=== PATIENT | female | born 1990 | race Caucasian/White ===

== ENCOUNTER → 2016-06-06 | Outpatient (CLI) | payer BC ==
[2016-06-07 13:02] LABS: BLACK RACE non-Black (()); DOWN SYNDROME RISK BY MOM'S AG 1/950 (()); GESTIONAL AGE FOR RISK ESTIMAT Scan estimate (()); MATERNAL WEIGHT/LBS 147 lbs (()); RECOMMENDED FOLLOW UP None. (()); TRISOMY 18 ESTIMATED RISK < 1/100 (())
[2016-06-07 14:06] LABS: GENERAL TEST INFO (QUAD SCREE) SEE COMMENTS (()); INHIBIN SEE COMMENTS (()); INTERPRETATION (QUAD SCREEN) SEE COMMENTS (()); OTHER INFORMATION (QUAD SCRN) Initial testing (()); uE3 SEE COMMENTS (())
== END ==
LOC: MOB LAB 10:36
PROVIDERS: ATTEND Family Medicine
DX: Z36 Encounter for antenatal screening of mother (principal); O26.812 Pregnancy related exhaustion and fatigue, second trimester; Z3A.18 18 weeks gestation of pregnancy
CPT/HCPCS: 36415; 81511; 82728; 83540; 83550

== ENCOUNTER → 2016-06-21 | Outpatient (CLI) | payer BC ==
--- NOTE | 2016-06-21 13:21 | DI ---
US OB GTE 14 WEEKS,06/21/2016 10:54 AM: Clinical History: screening for malformations. Previous Exam: April 26, 2016 Findings: Multiple transabdominal grayscale and color Doppler sonographic images are obtained through the pelvi s, and demonstrate a single live intrauterine gestation in breech presentation. Amniotic fluid level is subjectively normal. There is normal motion of the limbs, heart and diaphragms. The cervix is long and closed measuring 3.2 cm in length. Estimated gestational age was determined by a composite of biparietal diameter, head circumference, a bdominal circumference and femur length yielding an estimated gestational age by ultrasound of 19 wee ks 4 days. Femur length measured at the 5th percentile. Estimated weight was 277 g (4th percentile). Impression: 1. Size is equal to dates however, estimated weight is at the 4th percentile femur length follo wing at the 5th percentile.
== END ==
LOC: US 10:50
PROVIDERS: ATTEND Family Medicine
DX: Z36 Encounter for antenatal screening of mother (principal); Z3A.20 20 weeks gestation of pregnancy
CPT/HCPCS: 76805

== ENCOUNTER → 2016-07-07 | Outpatient (CLI) | payer BC ==
--- NOTE | 2016-07-07 09:58 | DI ---
US OB , LIMITED,07/07/2016 8:59 AM: Clinical History: Check for growth Previous Exam: June 21, 2016 Findings: Multiple grayscale and color Doppler sonographic images are obtained through the pelvis, and demonstr ate a normal amniotic fluid index (17.7 cm). Umbilical artery Doppler waveforms were obtained revealing an SD ratio of 4.3. Detected Doppler heart tones measure 155 beats per minute. The cervix is long and closed measuring 4.4 cm in length. Estimated gestational age was determined by a composite of biparietal diameter, head circumference, a bdominal circumference and femur length yielding an estimated gestational age by ultrasound of 22 wee ks 3 days. Estimated weight was 491 g (24th percentile). The cervix is long and closed measuring 4.6 cm in length. Impression: Single live intrauterine gestation with size equal to dates. Normal amniotic fluid index. Elevated SD ratio (4.4)
== END ==
LOC: US 08:50
PROVIDERS: ATTEND Family Medicine
DX: Z36 Encounter for antenatal screening of mother (principal); Z3A.22 22 weeks gestation of pregnancy
CPT/HCPCS: 76815

== ENCOUNTER → 2016-07-20 | Outpatient (CLI) | payer BC ==
--- NOTE | 2016-07-20 16:15 | DI ---
LIMITED OBSTETRICAL ULTRASOUND, 07/20/2016 11:07 AM Clinical History: Other umbilical cord complication. The previous cord Doppler ultrasound study revea led an elevated systolic/diastolic ratio. Followup evaluation. Previous Exam: 07/07/2016. ADJUSTED LMP: 01/30/2016. There is a single live IUP currently in vertex presentation. Amnionic fluid content is normal. activity is observed as follows: cardiac and extremity. The placenta is posterior corpus and fundus a nd Grade 1. heart rate varies between 136-164 beats/minute and regular over a duration of 6 min utes between these measurements. Cord Doppler ultrasound is performed. There is diastolic flow. Peak systolic velocities are 3.6, 3.1, 3.1, and 5.9. The last measurement is close to the cord insertion, and NA certain of the accuracy of the measurement. However, at this stage of , the upper li mits of normal for systolic/diastolic ratio is 5.0. Readin. Cord Doppler ultrasound shows diastolic flow on every recorded measurement. 2. There is one systolic/diastolic ratio measurement that is above normal at 5.9, and this is close to the insertion of the cord. The waveform suggests it may not be optimally positioned. The other billy surements in other locations are well within normal limits.
== END ==
LOC: US 11:04
PROVIDERS: ATTEND Family Medicine
DX: O69.89X0 Labor and delivery complicated by other cord complications, not applicable or unspecified (principal); Z3A.24 24 weeks gestation of pregnancy
CPT/HCPCS: 76815

== ENCOUNTER → 2016-08-03 | Outpatient (CLI) | payer BC ==
--- NOTE | 2016-08-04 09:45 | DI ---
US OB , LIMITED,08/03/2016 12:58 PM: Clinical History: Cord complication Previous Exam: July 20, 2016 Findings: Multiple grayscale and color Doppler sonographic images are obtained through the pelvis demonstrating a single live intrauterine gestation in breech presentation with detected Doppler heart tones of 158 beats per minute. There is spontaneous motion of the knees. The placenta is posterior and grade 1 without visible defec ts. Umbilical cord Dopplers were obtained measuring an SD ratio between 3.0 and 3.5. At the cord insertio n, and umbilical Doppler measured SD ratio of 4.2. At the placenta, the umbilical artery Doppler measured an SD ratio of 3.2. Impression: Umbilical cord Dopplers are all within normal limits for patient's gestational age. (At 26 weeks, The range of SD ratios of two standard deviations measures between 3.22 and 4.67)
== END ==
LOC: US 12:54
PROVIDERS: ATTEND Family Medicine
DX: O69.89X0 Labor and delivery complicated by other cord complications, not applicable or unspecified (principal); Z3A.26 26 weeks gestation of pregnancy
CPT/HCPCS: 76815

== ENCOUNTER → 2016-08-17 | Outpatient (CLI) | payer BC ==
[2016-08-17 08:28] LABS: HEMATOCRIT 38.5 % (37.0-47.0); HEMOGLOBIN 13.6 g/dL (12.0-16.0); MEAN CORPUSCULAR HEMOGLOBIN 31.3 PG (27-31); MEAN CORPUSCULAR HGB CONC 35.3 g/dL (33-37); MEAN CORPUSCULAR VOLUME 88.5 FL (81-99); MEAN PLATELET VOLUME 9.3 FL (7.4-12.2); RED BLOOD COUNT 4.35 10^6/uL (4.20-5.40)
== END ==
LOC: LAB 08:12
PROVIDERS: ATTEND Family Medicine
DX: Z36 Encounter for antenatal screening of mother (principal); O36.0130 Maternal care for anti-D [Rh] antibodies, third trimester, not applicable or unspecified; Z3A.28 28 weeks gestation of pregnancy
CPT/HCPCS: 36415; 82950; 84443; 85027; 86850; 86900; 86901; J2790

== ENCOUNTER → 2016-08-19 | Outpatient (CLI) | payer BC ==
--- NOTE | 2016-08-19 13:16 | DI ---
LIMITED OBSTETRICAL ULTRASOUND WITH CORD DOPPLER ULTRASOUND AND RAGHU, 08/19/2016 9:49 AM Clinical History: Assess interval growth of fetus. Previous ultrasound exams revealed abnormal cord D oppler ultrasound values. Previous Exam: 08/03/2016. ADJUSTED LMP: 01/30/2016. There is a single live IUP currently in vertex presentation. Amnionic fluid content is normal for thi s stage of . Amniotic fluid index is 17.5 cm. activity is observed as follows: cardiac and extremity. The placenta is posterior corpus and Grade 1. heart rate varies between 129-160 beats/minute over a time interval of approximately 8 minutes, and is regular. Cord Doppler ultrasoun d shows diastolic flow with systolic/diastolic ratios of 4.2, 4.0, 2.9, and 3.3. BPD, HC, AC, and FL measurements are 73 mm, 268 mm, 226 mm, and 52 mm, respectively. These measurements correspond to EGA values of 29 weeks 3 days, 29 weeks 2 days, 27 weeks 0 days, and 27 weeks 6 days, respectively. Comp osite EGA is 28 weeks 3 days. The US EDC is 11/08/2016. EDC by adjusted LMP is 11/05/2016. The percenti les for the abdominal circumference and femur length measurements are 5%, and 10%, respectively where as the percentile ranking for the BPD and HC measurements are 52% and 27%, respectively. 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 Estimated fet al weight is 1099 g, plus or minus, 161 g. LMP percentile is 7%. Readin. Single live fetus with vertex presentation and normal amniotic fluid content. Amniotic fluid inde x is 17.5 cm. Placenta is posterior corpus and grade 1. 2. Cord Doppler ultrasound shows diastolic flow but there are systolic/diastolic ratios that are bor derline elevated. In addition, the [place] and FL percentile rankings are quite low at 5% and 10%, respec tively. LMP percentile becomes 7%. 3. The composite EGA is 28 weeks 3 days with an ultrasound EDC of 11/08/2016 in comparison with the E DC of 11/05/2016 based on the adjusted LMP of 01/30/2016. 4. Estimated weight is 1099 g, plus or minus, 161 g.
== END ==
LOC: US 10:46
PROVIDERS: ATTEND Family Medicine
DX: Z36 Encounter for antenatal screening of mother (principal); Z3A.28 28 weeks gestation of pregnancy
CPT/HCPCS: 76815

== ENCOUNTER → 2016-09-02 | Outpatient (CLI) | payer BC ==
--- NOTE | 2016-09-02 16:41 | DI ---
LIMITED OBSTETRICAL ULTRASOUND, 09/02/2016 9:54 AM Clinical History: Asymmetric IUGR affecting . Antepartum status. Previous Exam: 08/19/2016. ADJUSTED LMP: 01/30/2016. There is a single live IUP currently in vertex presentation. Cervical length measurement is approxima tely 15 mm. Amnionic fluid content is normal. Amniotic fluid index is 18.1 cm. activity is obse rved as follows: Cardiac, extremity, and respiratory. The placenta is posterior corpus and Grade 1. F etal heart rate varies between 137-157 beats/minute and regular. Cord Doppler ultrasound is performed and there is diastolic flow. Diastolic/systolic ratios are 4.0, 4.5, 4.8, and 3.0. These values are normal to mildly elevated for the 4.5 and 4.8 measurements. BPD, HC, AC, and FL measurements are 77 m m, 285 mm, 260 mm, and 59 mm, respectively. These measurements correspond to EGA values of 31 weeks z ero days, 31 weeks 3 days, 30 weeks 2 days, and 30 weeks 6 days, respectively. Composite EGA is 31 we eks zero days The US EDC is 11/04/2016. EDC by adjusted LMP is 11/05/2016. LMP percentile is 27%. Estim ated weight is 1589 g, plus or minus 232 g. Readin. Single live fetus with vertex presentation and normal amniotic fluid content. Amniotic fluid inde x is 18.1 cm. Placenta is posterior corpus and grade 1. 2. The composite EGA is 31 weeks zero days with an ultrasound EDC of 11/04/2016. Based on the adjuste d LMP date of 01/30/2016, the EDC would be 11/05/2016. 3. Cord Doppler ultrasound shows diastolic flow, but there are 2 systolic/diastolic measurements bhargavi t are elevated for this stage of . 4. LMP percentile is 27%. Estimated weight is 1589 g, plus or minus 232 g.
== END ==
LOC: US 09:50
PROVIDERS: ATTEND Family Medicine
DX: O36.5930 Maternal care for other known or suspected poor fetal growth, third trimester, not applicable or unspecified (principal); Z3A.30 30 weeks gestation of pregnancy
CPT/HCPCS: 76815

== ENCOUNTER 2016-09-11 19:20 | Inpatient (IN) | payer BC ==
[2016-09-11] MEDS ORDERED: NORMAL SALINE 10 ML SYRINGE FLUSH IVP PRN ×2 (20:08→20:18)
[2016-09-11] MEDS ORDERED: ONDANSETRON 4 MG/2 ML VIAL IVP PRN (20:18)
[2016-09-11] MEDS ORDERED: LIDOCAINE W/ SODIUM BICARB 0.5 ML SYR SUBD PRN (20:18)
[2016-09-11] MEDS ORDERED: Lactated Ringers 1,000 ML PRIMARY IV ONE (20:18)
[2016-09-11] MEDS ORDERED: BETAMET ACET/BETAMET NA PH 6 MG/1 ML - 5 ML IM SCH (20:30)
--- NOTE | 2016-09-11 20:54 | OB.PROGRES ---
Interval History: The patient is a 26-year-old at 31-6/7 weeks today who presented to labor and delivery this evening after having cramping most of the day today and also pelvic pressure lasting a couple hours. Patient also noticed a pink discharge on Monday and Monday and last had intercourse probably 2 or 3 days ago. No gush of fluid, positive movement. No history of delivery. Patient did have LEEP procedure after her last delivery which was a . The patient related a history to the labor and delivery nurse that her last ultrasound showed her cervix to be 15 mm in length. Also, the patient has had recent ultrasounds and 1 on 08/19/2016 which showed asymmetric IUGR with the abdominal circumference and femur length to be in the 5-10 percentile but the head circumference and BPD to be in the 50+ percentile. The patient's RAGHU has been normal. Patient has also had Dopplers that have been slightly elevated up to . Patient next has a growth ultrasound next which will be 2 weeks since her last ultrasound. The patient has not had steroids yet for lung maturity and other preventions. The patient did have RhoGAM at around 28 weeks. The patient had RhoGAM with her last 2 pregnancies and after delivery had RhoGAM both times. The patient's first delivery was a vaginal delivery of a 6 lbs. 12 oz. female and then the patient had a section that may have been a classical section of a male 7 lbs. 2 oz. for nonreassuring status. The patient plans on a repeat and tubal ligation. 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 Last Pap smear was December 2015 and it was negative with negative HPV. Objective - Cervical Exam Cervical Exam: Soft but closed and long. I can palpate a slight dimple since the patient is parous but her cervix is closed. No blood on my gloved hand after the check [place]: Uterine irritability every 1-3 minutes Heart Rate Interpretation Category: Category I - Additional Details Additional Details: Lungs clear to auscultation Heart regular rate and rhythm Abdomen is gravid, soft, nontender without guarding or rebound Extremities with no edema, reflexes 3+ patellar bilaterally, no clonus bilaterally Transvaginal ultrasound shows cervical length to be 4.7-5 cm. Of significant note, ultrasound from 09/02/2016 was reviewed and cervical length was an abdominal view cervical length and it was listed as 5 cm. RAGHU today was 18.9 cm and baby was in the cephalic presentation Assessment and Plan - Assessment / Plan Additional Assessment/Plan Details: Assessment: IUP 31 6/7 weeks with contractions and pink vaginal discharge on Monday and Monday one in 2 days ago. [place] shows uterine irritability with irritability every 1-3 minutes. With the pink vaginal discharge that the patient had on Monday and Monday, a fibronectin was not completed. Possible asymmetric IUGR with ultrasound on 08/19/2016 although on last ultrasound the head circumference, BPD, femur length and abdominal circumference were closer together and measurements and the EFW was the 27th percentile. Cord Dopplers have been slightly elevated. 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 The editor at large that completed the last cervical length also completed the cervical length this evening. We looked at the last ultrasound images and the cervical length was an abdominal cervical length and it was measured at 5 cm. the reading on the radiologist report was 15 mm. The cervical length this evening was 4.7-5 cm on 2 different transvaginal images. The RAGHU this evening is 8.9 cm. This is excellent that the cervix is not 15 mm in length but is 4.7-5 cm in length. Plan: Admit patient to labor and delivery IV fluids Midstream clean catch UA and micro-and culture if indicated Group B strep culture should be completed Celestone 12 mg IM today and then repeat in 24 hours. I did discuss this with the patient that the reason for Celestone is in case there may be a delivery that the Celestone may help with lung maturity development, may help prevent interventricular hemorrhage, and may help prevent necrotizing enterocolitis. Nifedipine 10 mg 1 by mouth every 20 minutes 3 doses then every 4 hours Will continue to follow closely. If the patient's contractions continue and the patient's cervix starts to dilate and/or efface, I would consider magnesium sulfate and transferred to a tertiary care hospital that has a NICU. Our referral consultants are in [place], [place]. Currently, this was explained to the patient but we will not do this currently.
[2016-09-11 21:46] LABS: BASOPHILS # (AUTO) 0.02 10*3/UL; BASOPHILS % (AUTO) 0.2 % (0-1); EOSINOPHILS # (AUTO) 0.08 10*3/UL; EOSINOPHILS % (AUTO) 0.9 % (0-8); HEMATOCRIT 36.8 % (37.0-47.0); LYMPHOCYTES # (AUTO) 1.55 10*3/uL; MEAN CORPUSCULAR HGB CONC 35.3 g/dL (33-37); MEAN CORPUSCULAR VOLUME 87.8 FL (81-99); MEAN PLATELET VOLUME 10.2 FL (7.4-12.2); MONOCYTES # (AUTO) 0.87 10*3/UL (0.3-0.8); MONOCYTES % (AUTO) 10.1 % (5-15); NEUTROPHILS # (AUTO) 6.06 10*3/UL; NEUTROPHILS % (AUTO) 70.6 % (50-80); RED BLOOD COUNT 4.19 10^6/uL (4.20-5.40)
[2016-09-11] MEDS: NIFEdipine 10 MG CAPSULE PO SCH ×3 (21:48→22:29)
[2016-09-11 21:49] LABS: PLATELET MORPHOLOGY COMMENT NORMAL MORPHOLOGY (NORM); RBC MORPHOLOGY COMMENT NORMAL MORPHOLOGY (NORM); WBC MORPHOLOGY COMMENT NORMAL MORPHOLOGY (NORM)
--- NOTE | 2016-09-11 21:51 | DI ---
US OB , LIMITED,09/11/2016 8:09 PM: Clinical History: Cervical length in a patient with a history of LEEP Previous Exam: None at this facility. Findings: Multiple transvaginal grayscale and color Doppler sonographic images are obtained through the pelvis demonstrating a normal appearing cervix measuring 5.0 cm in length without evidence of cervical incon tinence. There is a normal amniotic fluid index measuring 18.9 cm. Doppler heart tones are not visualized on these selected images. Impression: 1. The cervix long and closed (5.0 cm). 2. Normal amniotic fluid index.
[2016-09-11 21:53] LABS: BLOOD UREA NITROGEN 10 mg/dL (7-22); BUN/CREATININE RATIO 16.66 (6-20); CALCIUM 9.5 mg/dL (8.7-10.7); EST GLOMERULAR FILTRATION > 60 (>60 ml/min/1.73m(2)); SERUM ALBUMIN 3.5 g/dL (3.5-4.8)
[2016-09-11 21:55] LABS: BILIRUBIN,URINE NEGATIVE (NEG); COLOR,URINE YELLOW; GLUCOSE, URINE (UA) NEGATIVE (NEG); NITRATE,URINE NEGATIVE (NEG); OCCULT BLOOD,URINE NEGATIVE (NEG); PROTEIN,URINE NEGATIVE (NEG); UROBILINOGEN,URINE 0.2 EU/dL (0.2)
[2016-09-11 21:57] LABS: CLARITY,URINE CLEAR (CLEAR); URINE SAMPLE TYPE CLEAN CATCH URINE
[2016-09-11 22:27] VITALS: RESP 18
[2016-09-11] MEDS: Lactated Ringers 1,000 ML PRIMARY IV SCH (23:30)
[2016-09-12] MEDS: NIFEdipine 10 MG CAPSULE PO SCH ×3 (02:59→10:54)
[2016-09-12] MEDS: Lactated Ringers 1,000 ML PRIMARY IV SCH (06:58)
[2016-09-12 07:16] VITALS: TEMP 97.4
[2016-09-12] MEDS ORDERED: ACETAMINOPHEN 325 MG TABLET PO PRN (08:29)
[2016-09-12] MEDS ORDERED: Prenatal Multivitamin Tab 1 TAB TAB PO SCH (09:00)
--- NOTE | 2016-09-12 09:27 | OB.PROGRES ---
Date and Time of Service: 09/12/16 Interval History: Doing well this morning. Had some cramping this morning, but that is better after voiding and eating some breakfast. Denies any vag bleeding or gushes of fluid. Baby is active. Had some tylenol this am for a mild HERNANDEZ. Objective - Cervical Exam Cervical Exam: no check this morning [place]: mild irritability this am, improved after voiding and eating. No regular contractions. Heart Rate: 115-120, reactive, category 1 strip, no decels noted. Heart Rate Interpretation Category: Category I - Labs CBC and BMP: 09/11/16 21:39 09/11/16 21:39 Labs - Last 24 Hours: Laboratory Results 09/11/16 Range/Units 21:39 WBC 8.60 (4.8-10.8) 10^3/uL RBC 4.19 L (4.20-5.40) 10^6/uL Hgb 13.0 (12.0-16.0) g/dL Hct 36.8 L (37.0-47.0) % MCV 87.8 (81-99) FL MCH 31.0 (27-31) PG MCHC 35.3 (33-37) g/dL RDW Std Deviation 42.8 (39-50) fL RDW Coeff of Nilesh 13.7 (11.5-14.5) % Plt Count 171 (140-350) 10*3/uL MPV 10.2 (7.4-12.2) FL Immature Gran % (Auto) 0.2 (0-5) % Neut % (Auto) 70.6 (50-80) % Lymph % (Auto) 18.0 (10-50) % [place] % (Auto) 10.1 (5-15) % Eos % (Auto) 0.9 (0-8) % Baso % (Auto) 0.2 (0-1) % Immature Gran # (Auto) 0.02 10*3/UL Neut # (Auto) 6.06 10*3/UL Lymph # (Auto) 1.55 10*3/uL [place] # (Auto) 0.87 H (0.3-0.8) 10*3/UL Eos # (Auto) 0.08 10*3/UL Baso # (Auto) 0.02 10*3/UL WBC Morphology Comment Normal morphology (NORM) Plt Morphology Comment Normal morphology (NORM) RBC Morph Comment Normal morphology (NORM) Sodium 137 (135-145) meq/L Potassium 3.9 (3.8-5.2) meq/L Chloride 105 (98-112) meq/L Carbon Dioxide 22 L (23-33) meq/L Anion Gap 10 (5-20) BUN 10 (7-22) mg/dL Creatinine 0.6 (0.50-1.20) mg/dL Estimated GFR > 60 (>60 ml/min/1.73m(2)) BUN/Creatinine Ratio 16.66 (6-20) Glucose 80 (78-110) mg/dL Calculated Osmolality 281.0 (267-292) mOsm/kg Calcium 9.5 (8.7-10.7) mg/dL Total Bilirubin 0.6 (0.3-1.2) mg/dL AST 22 (8-39) IU/L ALT 24 (9-52) IU/L Alkaline Phosphatase 81 (38-126) IU/L Total Protein 6.4 (6.1-8.0) g/dL Albumin 3.5 (3.5-4.8) g/dL Globulin 2.8 (2.50-4.10) g/dL Albumin/Globulin Ratio 1.20 L (1.3-2.0) mg/g Ur Collection Type Clean catch urine Urine Color Yellow Urine Clarity Clear (CLEAR) Urine pH 7.0 (5.0-8.5) Ur Specific [place] 1.010 (1.005-1.030) Urine Protein Negative (NEG) mg/dl Urine Glucose (UA) Negative (NEG) mg/dL Urine Ketones Negative (NEG) Urine Occult Blood Negative (NEG) Urine Nitrate Negative (NEG) Urine Bilirubin Negative (NEG) Urine Urobilinogen 0.2 (0.2) EU/dL Ur Leukocyte Esterase Negative (NEG) Ur Culture Indicated? Culture not set - Vital Signs Last Taken Vital Signs: Vital Signs - Last Taken Temperature 97.4 F 09/12/16 07:00 Pulse Rate 99 09/12/16 07:00 Respiratory Rate 18 09/12/16 07:00 Blood Pressure 112/58 09/12/16 07:00 Pulse Ox 99 09/12/16 07:00 Assessment and Plan - Patient Problems (1) uterine contractions Current Visit: Yes Status: Acute - Assessment / Plan Additional Assessment/Plan Details: -pt currently getting procardia scheduled, will continue this until we are able to check a FFN later tonight (24 hours after vaginal u/s and cervical check). -second dose of celestone tonight will complete this course. -depending on results of FFN, may change the procardia to prn. -has u/s scheduled on September 15 to check growth of baby given h/o asymmetric IUGR. -f/u in the office tomorrow/sooner prn.
== END 2016-09-12 12:53 | disposition home or self-care (01) | DRG 778 ==
LOC: OBOP 19:20 → OBIP 20:19
PROVIDERS: ADMIT Obstetrics & Gynecology; ATTEND Obstetrics & Gynecology
DX: O60.03 Preterm labor without delivery, third trimester (principal)
CPT/HCPCS: 76815; 80053; 81003; 85025; 87150; J0702; J7120

== ENCOUNTER 2016-09-12 21:40 | Outpatient (CLI) | payer BC ==
[2016-09-12] MEDS ORDERED: BETAMET ACET/BETAMET NA PH 6 MG/1 ML - 5 ML IM SCH (22:00)
--- NOTE | 2016-09-13 22:26 | PDOC(PROG) ---
Intake - - Reason for Visit/Chief Complaint: Pelvic Pressure - Para: 2 Living Children: 2 - Labs Blood Type and Rh: O- Assessment and Plan - Patient Problems (1) uterine contractions Status: Acute
== END 2016-09-12 22:42 | disposition home or self-care (01) ==
LOC: OBOP 21:40
PROVIDERS: ATTEND Family Medicine
DX: O60.03 Preterm labor without delivery, third trimester (principal); Z3A.32 32 weeks gestation of pregnancy
CPT/HCPCS: 82731; 96372

== ENCOUNTER → 2016-09-15 | Outpatient (CLI) | payer BC ==
--- NOTE | 2016-09-15 15:18 | DI ---
US OB , LIMITED,09/15/2016 1:09 PM: Clinical History: Asymmetric IUGR. Previous Exam: September 11, 2016 Findings: Multiple grayscale and color Doppler sonographic images are obtained through the pelvis demonstrating a single live intrauterine gestation in cephalic presentation, and demonstrate A normal cervix which is long and closed measuring 4.7 cm in length. Estimated gestational age was determined by a composite of biparietal diameter, head circumference, a bdominal circumference and femur length yielding an estimated gestational age by ultrasound of 32 wee ks 2 days. Cord Dopplers demonstrate SD ratios between 3.0 and 4.0. Estimated weight was 1912 g (24th percentile). Impression: Single live intrauterine gestation with size equal to dates. Normal amniotic fluid index. SD ratios measuring between 3.0 and 4.0.
== END ==
LOC: US 12:59
PROVIDERS: ATTEND Family Medicine
DX: O36.5930 Maternal care for other known or suspected poor fetal growth, third trimester, not applicable or unspecified (principal); Z3A.32 32 weeks gestation of pregnancy
CPT/HCPCS: 76815

== ENCOUNTER → 2016-09-26 | Outpatient (CLI) | payer BC ==
--- NOTE | 2016-09-26 15:10 | DI ---
US OB , LIMITED,09/26/2016 9:51 AM: Clinical History: Asymmetric intrauterine growth restriction affecting Previous Exam: September 15, 2016 Findings: Multiple grayscale and color Doppler sonographic images are obtained through the pelvis demonstrating a single live intrauterine gestation with detected Doppler heart tones of 130 beats per minute. Umbilical cord Doppler is are performed demonstrating SD ratios of between 2.7 and 3.6. Amniotic fluid index measures 19.6 cm. Estimated gestational age was determined by a composite of biparietal diameter, head circumference, a bdominal circumference and femur length, and yield an estimated gestational age by ultrasound of 33 w eeks 6 days. Estimated weight is 2267 g (29th percentile). Femur length measured at less than the 2nd percentile. Impression: Single live intrauterine gestation with estimated gestational age within normal limits. The femur length measures at less than the 2nd percentile.
== END ==
LOC: US 09:46
PROVIDERS: ATTEND Family Medicine
DX: O36.5930 Maternal care for other known or suspected poor fetal growth, third trimester, not applicable or unspecified (principal); Z3A.34 34 weeks gestation of pregnancy
CPT/HCPCS: 76815

== ENCOUNTER 2016-09-30 10:07 | Outpatient (CLI) | payer BC ==
[2016-09-30] MEDS ORDERED: NORMAL SALINE 10 ML SYRINGE FLUSH IVP PRN (10:22)
[2016-09-30 10:28] VITALS: RESP 16; TEMP 98.1
== END 2016-09-30 11:05 | disposition home or self-care (01) ==
LOC: OBOP 10:07
PROVIDERS: ATTEND Family Medicine
DX: O36.5930 Maternal care for other known or suspected poor fetal growth, third trimester, not applicable or unspecified (principal); Z3A.34 34 weeks gestation of pregnancy
CPT/HCPCS: 59025; 81003; 99211

== ENCOUNTER 2016-10-04 10:03 | Outpatient (CLI) | payer BC ==
[2016-10-04 10:18] VITALS: RESP 18; TEMP 97.4
--- NOTE | 2016-10-04 13:28 | DI ---
LIMITED OBSTETRICAL ULTRASOUND WITH RAGHU AND CORD DOPPLER ULTRASOUND, 10/04/2016 10:43 AM Clinical History: IUGR. Previous Exam: 09/26/2016. ADJUSTED LMP: 01/30/2016. There is a single live IUP currently in transverse lie. Amnionic fluid content is normal. Amniotic fl uid index is 22.1 cm. activity is observed as follows: cardiac, extremity, and respiratory. The placenta is posterior corpus and fundus and Grade 1. heart rate varies between 124-167 beats/m inute over a 10 minute interval, and is regular. Cord Doppler ultrasound shows diastolic flow. Systol ic/diastolic ratios are 3.8, 4.4, and 2.4. The 4.4 value is borderline elevated for this stage of pre gnancy. BPD, HC, AC, and FL measurements are 87 mm, 312 mm, 303 mm, and 64 mm, respectively. These me asurements correspond to EGA values of 35 weeks one day, 35 weeks zero days, 34 weeks 2 days, and 33 weeks one day, respectively. Composite EGA is 34 weeks 3 days The US EDC is 11/12/2016. EDC by adjusted LMP is 11/05/2016. LMP percentile is 16%. Estimated weight is 2344 g, plus or minus 342 g. Readin. Single live fetus with transverse lie. Amniotic fluid content is normal. Amnionic fluid index is 22.1 cm. Placenta is posterior corpus and fundus and grade 1. 2. The composite EGA is 34 weeks 3 days with an ultrasound EDC of 11/12/2016. This compares to the EDC of 11/05/2016 that is based on the adjusted LMP of 01/30/2016. The previous study gave an ultrasound E DC of 11/08/2016. 3. Cord Doppler ultrasound shows diastolic flow. There is one systolic/diastolic ratio that is mildl y elevated for this stage of . The other values are well within normal limits. 4. LMP percentile is 16%. Estimated weight is 2344 g, plus or minus 342 g.
== END 2016-10-04 12:00 | disposition home or self-care (01) ==
LOC: OBOP 10:03
PROVIDERS: ATTEND Family Medicine
DX: O36.5930 Maternal care for other known or suspected poor fetal growth, third trimester, not applicable or unspecified (principal); Z3A.34 34 weeks gestation of pregnancy
CPT/HCPCS: 59025; 76815; 81003; 99211

== ENCOUNTER 2016-10-11 10:10 | Outpatient (CLI) | payer BC ==
[2016-10-11 11:01] VITALS: RESP 18; TEMP 97.6
--- NOTE | 2016-10-11 14:41 | DI ---
HISTORY: Intrauterine growth restriction. PREVIOUS EXAM: None at this facility. TECHNIQUE/FINDINGS: Multiple grayscale and color Doppler sonographic images are obtained through the pelvis demonstrating a single live intrauterine gestation in transverse lie with the head to materna l left. Detected Doppler heart tones measured 139 beats per minute. Amniotic fluid index is normal (21.8 cm). There is normal motion of the limbs and normal respiratory motion. The placenta is posterior and grade 1 without visible defects. Umbilical artery Dopplers were performed revealing SD ratios of 2.4. The cervix is long and closed measuring 5.9 cm in length. IMPRESSION: 1. Single live intrauterine gestation with a normal amniotic fluid index and SD ratio of 2.4. NOTE: The interpreting Radiologist was not present at the time of ultrasound interrogation.
--- NOTE | 2016-10-12 16:58 | PDOC(PROG) ---
Intake - - Reason for Visit/Chief Complaint: NST Admitted From: Home - Estimated Due Date: 11/07/16 Gestational Age in Weeks and Days: 36 Weeks and 2 Days : 3 Para: 2 Term Births: 2 Living Children: 2 - Labs Blood Type and Rh: O- Hepatitis B Surface Antigen: Absent HIV: Negative Rubella Status: Immune VDRL/RPR: Absent Maternal - Vital Signs Last Taken Vital Signs: Vital Signs - Last Taken Temperature 97.6 F 10/11/16 10:25 Pulse Rate 95 10/11/16 10:25 Respiratory Rate 18 10/11/16 10:25 Blood Pressure 112/71 10/11/16 10:25 Pulse Ox 100 10/11/16 10:25 - Uterine Activity Uterine Contraction Monitor Mode: External Uterine Contraction Pattern: Absent - Vaginal Discharge Vaginal Bleeding Amount: None Vaginal Discharge Amount: None Monitoring - Uterine Activity Uterine Contraction Monitor Mode: External Uterine Contraction Pattern: Absent Results - Bedside Testing Bedside Urine Ketone: Negative Bedside Urine Leukocytes Esterase: Negative Bedside Urine Nitrite: Negative Bedside Urine Occult Blood: Negative Bedside Urine Protein: Negative Bedside Specific [place]: 1.010 Assessment and Plan - Patient Problems (1) IUGR (intrauterine growth restriction) Status: Acute
== END 2016-10-11 11:31 | disposition home or self-care (01) ==
LOC: US 10:10
PROVIDERS: ATTEND Family Medicine
DX: O36.5930 Maternal care for other known or suspected poor fetal growth, third trimester, not applicable or unspecified (principal); Z36 Encounter for antenatal screening of mother; Z3A.36 36 weeks gestation of pregnancy
CPT/HCPCS: 59025; 76815; 81003; 87150; 99211

== ENCOUNTER 2016-10-14 10:59 | Outpatient (CLI) | payer BC ==
[2016-10-14 12:16] VITALS: RESP 16; TEMP 97.9
== END 2016-10-14 11:43 | disposition home or self-care (01) ==
LOC: OBOP 10:59
PROVIDERS: ATTEND Family Medicine
DX: O36.5930 Maternal care for other known or suspected poor fetal growth, third trimester, not applicable or unspecified (principal); Z3A.36 36 weeks gestation of pregnancy
CPT/HCPCS: 59025; 99211

== ENCOUNTER 2016-10-18 09:56 | Outpatient (CLI) | payer BC ==
[2016-10-18 10:10] VITALS: RESP 16; TEMP 97.7
--- NOTE | 2016-10-18 12:50 | DI ---
US OB , LIMITED,10/18/2016 10:37 AM: Clinical History: Check amniotic fluid index. Previous Exam: October 11, 2016 Findings: Multiple grayscale and color Doppler sonographic images are obtained through the pelvis demonstrating a single live intrauterine gestation in vertex presentation. Amniotic fluid index is normal (21.2 cm). Detected Doppler heart tones measure 132 beats per minute. There was spontaneous motion of the limbs. Impression: 1. Normal amniotic fluid index. (21.2 cm). 2. Single live intrauterine gestation.
== END 2016-10-18 11:22 | disposition home or self-care (01) ==
LOC: US 09:56
PROVIDERS: ATTEND Family Medicine
DX: O36.5930 Maternal care for other known or suspected poor fetal growth, third trimester, not applicable or unspecified (principal); Z3A.37 37 weeks gestation of pregnancy
CPT/HCPCS: 59025; 76815; 99211

== ENCOUNTER 2016-10-21 10:57 | Outpatient (CLI) | payer BC ==
[2016-10-21 13:03] VITALS: RESP 20; TEMP 97.6
[2016-10-21] MEDS ORDERED: NORMAL SALINE 10 ML SYRINGE FLUSH IVP PRN (13:05)
== END 2016-10-21 11:57 | disposition home or self-care (01) ==
LOC: OBOP 10:57
PROVIDERS: ATTEND Family Medicine
DX: O36.5930 Maternal care for other known or suspected poor fetal growth, third trimester, not applicable or unspecified (principal); Z3A.37 37 weeks gestation of pregnancy
CPT/HCPCS: 59025; 81003; 99211

== ENCOUNTER 2016-10-25 09:58 | Outpatient (CLI) | payer BC ==
[2016-10-25 10:10] VITALS: RESP 16; TEMP 97.6
--- NOTE | 2016-10-25 11:10 | DI ---
US OB , LIMITED,10/25/2016 10:33 AM: Clinical History: Intrauterine growth restriction Previous Exam: October 18, 2016 Findings: Multiple grayscale and color Doppler sonographic images are obtained through the pelvis demonstrating a single live intrauterine gestation with a normal amniotic fluid index (20.0 cm). Detected Doppler heart tones measure 130 beats per minute. Impression: Single live intrauterine gestation with normal amniotic fluid index (20.0 cm).
== END 2016-10-25 11:25 | disposition home or self-care (01) ==
LOC: US 09:58
PROVIDERS: ATTEND Family Medicine
DX: O36.5930 Maternal care for other known or suspected poor fetal growth, third trimester, not applicable or unspecified (principal); Z3A.37 37 weeks gestation of pregnancy
CPT/HCPCS: 59025; 76815; 81003; 99211

== ENCOUNTER 2016-10-28 21:35 | Outpatient (CLI) | payer BC ==
[2016-10-28 21:59] VITALS: RESP 22; TEMP 97.7
[2016-10-28] MEDS ORDERED: NORMAL SALINE 10 ML SYRINGE FLUSH IVP PRN (22:10)
[2016-10-28] MEDS ORDERED: Ondansetron ODT Tab 4 MG TAB PO ONE ×2 (22:11→22:15)
--- NOTE | 2016-11-05 19:47 | PDOC(PROG) ---
Intake - - Reason for Visit/Chief Complaint: Contractions Additional Reason(s) for Visit: shawna thomas Admitted From: out at [facility] - Estimated Due Date: 11/07/16 Gestational Age in Weeks and Days: 39 Weeks and 5 Days : 3 Para: 2 Term Births: 2 Living Children: 2 - Labs Blood Type and Rh: O- Maternal - Vital Signs Last Taken Vital Signs: Vital Signs - Last Taken Temperature 97.7 F 10/28/16 21:53 Pulse Rate 83 10/28/16 21:53 Respiratory Rate 22 10/28/16 21:53 Blood Pressure 112/67 10/28/16 22:37 Pulse Ox 100 10/28/16 21:53 - Uterine Activity Uterine Contraction Monitor Mode: External Contraction Frequency(minutes): 8-13 Contraction Duration (seconds): 40 Uterine Contraction Pattern: Absent Uterine Tone Measurement Phase: Resting Uterine Contraction Intensity: Mild - Cervical Exam Cervical Dilation (cm): 0 Station: -2 Exam Performed By: Jacqueline Sims RN - Vaginal Discharge Vaginal Bleeding Amount: None Monitoring - Uterine Activity Uterine Contraction Monitor Mode: External Contraction Frequency(minutes): 8-13 Contraction Duration (seconds): 40 Uterine Contraction Pattern: Absent Uterine Tone Measurement Phase: Resting Uterine Contraction Intensity: Mild Results - Bedside Testing Bedside Urine Ketone: Negative Bedside Urine Leukocytes Esterase: Negative Bedside Urine Nitrite: Negative Bedside Urine Occult Blood: Negative Bedside Urine Protein: Negative Bedside Specific [place]: 1.005 Assessment and Plan - Patient Problems (1) False labor after 37 completed weeks of gestation Status: Acute - Assessment / Plan Additional Assessment/Plan Details: -1-2 contractions noted on monitor during 45 minute stay on labor and delivery, which pt didn't feel. -no other bleeding or abnormal leakage of fluid or discharge. -NST was reactive. -strict labor precautions. -will f/u on Monday for planned repeat .
== END 2016-10-28 23:00 | disposition home or self-care (01) ==
LOC: OBOP 21:35
PROVIDERS: ATTEND Family Medicine
DX: O47.1 False labor at or after 37 completed weeks of gestation (principal); Z3A.38 38 weeks gestation of pregnancy
CPT/HCPCS: 59025; 81003; 99211

== ENCOUNTER 2016-10-31 05:52 | Inpatient (IN) | payer BC ==
[2016-10-31] MEDS ORDERED: LIDOCAINE W/ SODIUM BICARB 0.5 ML SYR SUBD PRN (06:26)
[2016-10-31] MEDS ORDERED: Lactated Ringers 1,000 ML PRIMARY IV ONE (06:26)
[2016-10-31] MEDS ORDERED: Metoclopramide Inj 10 MG/2 ML VIAL IV ONE (06:26)
[2016-10-31] MEDS ORDERED: CefOXitin Inj 2 GM in Sodium Chloride 0.9% 100 ML IV ONE (06:26)
[2016-10-31] MEDS ORDERED: CITRIC ACID/SODIUM CITRATE 30 ML CUP PO ONE (06:26)
[2016-10-31] MEDS ORDERED: NORMAL SALINE 10 ML SYRINGE FLUSH IVP PRN ×2 (06:26→09:07)
[2016-10-31] MEDS ORDERED: Famotidine Inj 20 MG in Normal Saline Flush 10 ML IVP ONE (06:26)
[2016-10-31] MEDS ORDERED: Oxytocin 20 Units + LR 1,000 ML IV SCH ×2 (06:30→10:15)
[2016-10-31] MEDS ORDERED: Lactated Ringers 1,000 ML PRIMARY IV SCH (06:30)
[2016-10-31 07:07] LABS: HEMATOCRIT 37.5 % (37.0-47.0); HEMOGLOBIN 13.2 g/dL (12.0-16.0); MEAN CORPUSCULAR HEMOGLOBIN 30.4 PG (27-31); MEAN CORPUSCULAR HGB CONC 35.2 g/dL (33-37); MEAN CORPUSCULAR VOLUME 86.4 FL (81-99); RED BLOOD COUNT 4.34 10^6/uL (4.20-5.40)
[2016-10-31] MEDS ORDERED: fentaNYL Inj 100 MCG/2 ML VIAL ONE (07:14)
[2016-10-31] MEDS ORDERED: ePHEDrine Inj 50 MG/ML AMP ONE ×2 (07:15→08:15)
[2016-10-31] MEDS ORDERED: Sodium Chloride 0.9% vial 10 ML ONE ×2 (07:15→08:17)
[2016-10-31] MEDS ORDERED: FAMOTIDINE 20 MG/2 ML VIAL IVP ONE (07:26)
[2016-10-31] MEDS ORDERED: Sodium Chloride 0.9% 50 ML IV ONE (07:26)
[2016-10-31] MEDS ORDERED: ONDANSETRON 4 MG/2 ML VIAL IVP PRN ×2 (09:07→10:15)
[2016-10-31] MEDS ORDERED: KETOROLAC 30 MG/1 ML VIAL ONE (09:07)
[2016-10-31] MEDS ORDERED: HYDROmorphone 2 MG/1 ML IVP PRN (09:07)
--- NOTE | 2016-10-31 09:09 | CRNA.PROCE ---
Central Neuraxis Block Placemt - - Type of Block: Subarachnoid Reason for Block: Surgical Moniters Used During Block: EKG, SPO2, NIBP Local Anesthetic - Enter Amount Used in Comment Field: 0.75 % Bupivacaine with Dextrose (ml): Yes Additive Used - Enter Amount Used in Comment Field: Fentanyl (mcg): Yes (15mcg) Bioclusive Dressing Applied: No
[2016-10-31] MEDS ORDERED: CALCIUM CARBONATE 500 MG (TUMS) CHEWABLE TABLET PO PRN (10:15)
[2016-10-31] MEDS ORDERED: diphenhydrAMINE 25 MG CAPSULE PO PRN (10:15)
[2016-10-31] MEDS ORDERED: diphenhydrAMINE 50 MG/1 ML VIAL IV PRN (10:15)
[2016-10-31] MEDS ORDERED: METHYLERGONOVINE MALEATE 0.2 MG/1 ML VIAL IM PRN (10:15)
[2016-10-31] MEDS ORDERED: Carboprost Inj 250 MCG/ML AMP IM PRN (10:15)
[2016-10-31] MEDS ORDERED: Nalbuphine Inj 20 MG/ML Ampule IVP PRN (10:15)
[2016-10-31] MEDS ORDERED: OXYTOCIN 10 UNIT/1 ML IM ONE (10:15)
[2016-10-31] MEDS ORDERED: DIPH,PERTUSS,TET(ADACEL) VAC/PF 0.5 ML (Tdap) IM SCH (10:15)
[2016-10-31] MEDS ORDERED: MISOPROSTOL 200 MCG TABLET RECTAL ONE (10:15)
[2016-10-31] MEDS ORDERED: D5-LR 1,000 ML PRIMARY IV SCH (10:15)
[2016-10-31] MEDS ORDERED: HYDROmorphone 2 MG/1 ML IV PRN (10:15)
[2016-10-31] MEDS ORDERED: LANOLIN HPA 40 GM TUBE TOPICAL PRN (10:15)
[2016-10-31] MEDS ORDERED: Methylergonovine Tab 0.2 MG TAB PO PRN (10:15)
[2016-10-31] MEDS ORDERED: Naloxone Inj 0.01 MG, Sodium Chloride 0.9% vial 1 ML IVP PRN ×2 (10:15)
[2016-10-31] MEDS ORDERED: Famotidine Inj 20 MG in Normal Saline Flush 10 ML IVP PRN (10:15)
[2016-10-31] MEDS ORDERED: oxyCODONE-ACETAMINOPHEN 5-325 TAB PO PRN (10:15)
--- NOTE | 2016-10-31 10:45 | OB.OP.NOTE ---
Operative Report Surgeon: Gabrielle Lucas MD Pharmacy Operations Coordinator: Vimal New MD Anesthesia Type: Regional Anesthesia Provider: Tai Lara CRNA Surgery Date: 10/31/16 Preoperative Diagnosis: 1. Previous section. 2. Desired parity Postoperative Diagnosis: same, delivered Procedure: Repeat section Complications: none Estimated Blood Loss (mL): 800 Urine Output (mL): 25 Fluids: 2400 cc LR Indications: We do not offer vaginal after section trials at our facility and the patient did not desire this. She is requesting a repeat section with bilateral tubal ligation. Findings: viable female in transverse presentation with head to maternal left. Copious amounts of amniotic fluid. Description of Procedure: The patient was taken to the operating room where spinal anesthesia was found to be adequate. She was then prepared and draped in the normal sterile fashion in the dorsal supine position with a leftward tilt. A Pfannenstiel skin incision was then made with the scalpel and carried through to the underlying layer of fascia with the Bovie. The fascia was incised in the midline and the incision extended laterally with the Bovie. The superior aspect of the fascial incision was then grasped with Alejandra clamps, elevated and the underlying rectus muscles dissected off bluntly. Attention was then turned to the inferior aspect of this incision which, in a similar fashion, was grasped with Alejandra clamps and the rectus muscles dissected off both bluntly and with the Bovie. The rectus muscles were then in the midline, and the peritoneum identified and entered in a blunt fashion. The peritoneal incision was then extended superiorly and inferiorly with good visualization of the bladder. The Paco retractor was then inserted and the vesicouterine peritoneum was identified. The lower uterine segment was incised in a transverse fashion with the scalpel. Brisk bleeding was noted from the myometrium. The amniotic sac was entered digitally per Dr. New. The uterine incision was then extended laterally in a blunt fashion. The infant's head was off to the mom's left side and was difficult to bring to the uterine incision, so her head was actually delivered per Dr. New as he had a better angle from his side of the operating table. The head was delivered atraumatically. The nose and mouth were suctioned with the bulb suction and the cord was clamped and cut. The infant was handed off to the awaiting nurse. Cord gases and cord blood were sent for analysis. The placenta was then removed manually; the uterus exteriorized, and cleared of all clots and debris. The uterine incision was repaired with 0 Vicryl in a running, locked fashion. A second layer of the same suture was used to obtain excellent hemostasis. The peritoneal cavity was then copiously irrigated with warm saline. The uterus was returned to the abdomen. The paracolic gutters were copiously irrigated with warm saline and a second look at the uterus incision continued to reveal excellent hemostasis. The peritoneum was closed with 3-0 Vicryl. The fascia was reapproximated with 0 PDS in a running fashion. The subcutaneous space was irrigated copiously with warm saline and then closed first with 3-0 Vicryl and then more superficially with Insorb absorbable sutures. The skin was reapproximated with Steri-Strips and a Silverlon dressing applied. Fundal massage was completed with no clots in vaginal vault. The patient tolerated the procedure well. Sponge, lap, and needle counts were correct x2. Ancef was given preoperatively less than one hour prior to incision time. The patient was taken to the recovery room in stable condition.
[2016-10-31] MEDS: KETOROLAC 15 MG/1 ML VIAL IVP PRN ×2 (15:35→21:45)
[2016-10-31] MEDS ORDERED: RHO(D) IMMUNE GLOBULIN 1500 UNIT(300 mcg)SYRIN IM PRN (18:29)
[2016-10-31] MEDS: NORMAL SALINE 10 ML SYRINGE FLUSH IVP PRN (21:47)
[2016-11-01] MEDS: KETOROLAC 15 MG/1 ML VIAL IVP PRN ×2 (03:23→09:43)
[2016-11-01] MEDS: NORMAL SALINE 10 ML SYRINGE FLUSH IVP PRN (03:24)
[2016-11-01 08:02] LABS: HEMATOCRIT 29.5 % (37.0-47.0); HEMOGLOBIN 9.9 g/dL (12.0-16.0); MEAN CORPUSCULAR HEMOGLOBIN 29.9 PG (27-31); MEAN CORPUSCULAR HGB CONC 33.6 g/dL (33-37); MEAN CORPUSCULAR VOLUME 89.1 FL (81-99); MEAN PLATELET VOLUME 9.6 FL (7.4-12.2); RED BLOOD COUNT 3.31 10^6/uL (4.20-5.40)
--- NOTE | 2016-11-01 08:39 | CRNA.PROGR ---
Anesthesia Note Anesthesia Progress Note: Pt is sitting up in bed, has been up and moving. States that her pain is well under control. She is tolerating a regular diet. Current VSS. Vital Signs (Last 8 hours) Temp Pulse Pulse Resp BP Pulse Ox 11/01/16 08:11 98.1 F 94 18 110/69 99 11/01/16 04:31 98.7 F 93 18 108/72 97
[2016-11-01] MEDS: Prenatal Multivitamin Tab 1 TAB TAB PO SCH (09:44)
[2016-11-01] MEDS: Senna/Docusate Tab 1 TAB TAB PO SCH ×2 (09:44→21:17)
[2016-11-01] MEDS ORDERED: IBUPROFEN 800 MG TABLET PO PRN (10:08)
[2016-11-01] MEDS: FERROUS GLUCONATE 324 MG TABLET PO SCH (21:18)
[2016-11-02 08:23] VITALS: RESP 17
[2016-11-02 08:25] VITALS: TEMP 97.9
[2016-11-02] MEDS: FERROUS GLUCONATE 324 MG TABLET PO SCH (08:33)
[2016-11-02] MEDS: Senna/Docusate Tab 1 TAB TAB PO SCH (08:33)
[2016-11-02] MEDS: Prenatal Multivitamin Tab 1 TAB TAB PO SCH (08:33)
--- NOTE | 2016-11-02 14:29 | DCSUMMARY ---
Hospitalization Summary Admit Date: 10/31/16 Discharge Date: 11/02/16 Primary Diagnosis:: Repeat section Secondary Diagnosis:: Desire for permanent sterilization Primary Surgery and Date: Repeat section with bilateral tubal ligation on 10/31/16 Delivery Type: Hospital Course: Pt was admitted for repeat section with bilateral tubal ligation on . For details of her surgery, please see operative note dictated elsewhere in the chart. / Postop Complications: The pt had a normal postoperative course. On the day of dischage, she was taking only motrin for pain, baby was feeding well and she was independent in her activities of daily living. She had no concerns. Complications: Besides the physical findings of a deep, asymmetric sacral dimple and a hymenal skin tag, the baby had a very normal course. On the day of discharge, she was breast feeding well and having normal voids and stools. Exam - Vitals Vital Signs: Vital Signs Temperature 97.9 F Temperature Source Temporal Artery Scan Pulse Rate [Pulse Oximeter] 82 Pulse Rate 94 Respiratory Rate 17 Blood Pressure [Left Arm] 110/75 Blood Pressure 115/70 Pulse Ox 99 Oxygen Delivery Method Room Air Height 5 ft 3 in Weight 171 lb - General General Appearance: POSITIVE: No Acute Distress, Cooperative - Head Head Exam: POSITIVE: Normal Inspection - Eye Eye Exam: POSITIVE: Normal Appearance - Neck Neck Exam: POSITIVE: Normal Inspection - Respiratory Respiratory Exam: POSITIVE: Clear to Auscultation - Bilaterally, Breathing Non Labored - Cardiovascular Cardiovascular Exam: POSITIVE: RRR, No Murmur - GI/Abdominal GI/Abdominal Exam: POSITIVE: Normal Bowel Sounds, Non Tender, Non Distended, Soft - Extremities Extremities Exam: POSITIVE: Normal Capillary Refill, +1 Edema - Neurological Neurological Exam: POSITIVE: Alert, Oriented x 3 - Psychiatric Psychiatric Exam: POSITIVE: Normal Affect, Normal Mood - Integumentary Integumentary Exam: POSITIVE: Normal Color, Warm, Dry Patient Problems - Patient Problem List (1) Request for sterilization Current Visit: Yes Status: Acute (2) Status post repeat low transverse section Current Visit: Yes Status: Acute
--- NOTE | 2016-11-02 14:29 | OB.PROGRES ---
Subjective Post Op Day: 1 Pain Management: PO Terrazas Catheter: Yes Flatus: Yes Diet: Regular Feeding Method: Exculsively Ambulating: Yes Concerns / Additional Information: Feeling well, did get some rest last noc. Denies chest pain, shortness of breath or calf pain. Objective - General General Appearance: POSITIVE: No Acute Distress, Cooperative - Cardiovacular Cardiovascular Exam: POSITIVE: RRR, No Murmur, No Clicks, No Gallops Edema: +1 Pedal Edema Extremities: Negative Nell's - Bilaterally - Respiratory Respiratory Exam: POSITIVE: Clear to Auscultation - Bilaterally, Breathing Non Labored - Abdomen Bowel Sounds: Present Abdominal Wound Assessment: Silverlone Dressing Assesstment / Plan (1) Status post repeat low transverse section Current Visit: Yes Status: Acute (2) Request for sterilization Current Visit: Yes Status: Acute Assessment / Plan: -POD #1 s/p repeat section with bilateral tubal ligation, doing well. -routine cares. -breast feeding well. -rh negative, will need rhogam. -rubella immune. -pain is well controlled. -d/c home in 1-2 days.
== END 2016-11-02 15:35 | disposition home or self-care (01) | DRG 766 ==
LOC: OBOR 05:52 → MED/SURG 09:48 → OBIP 10:55
PROVIDERS: ADMIT Family Medicine; ATTEND Family Medicine
PROC: 0UL70CZ Occlusion of Bilateral Fallopian Tubes with Extraluminal Device, Open Approach (ICD-10-PCS; 2016-10-31)
PROC: 10D00Z1 Extraction of Products of Conception, Low, Open Approach (ICD-10-PCS; principal; 2016-10-31 08:00)
DX: O34.211 Maternal care for low transverse scar from previous cesarean delivery (principal); N85.8 Other specified noninflammatory disorders of uterus; Z3A.39 39 weeks gestation of pregnancy; Z37.0 Single live birth; Z30.2 Encounter for sterilization
CPT/HCPCS: 81003; 85027; 86850; 86870; 86900; 86901; 86970; 94150; 94761; A4216; J1885; J2765; J2790; J3010; J7120